=== PATIENT | female | born 1950 | race African-American/Black ===

== ENCOUNTER → 2016-11-05 | Outpatient (CLI) | payer OTHER ==
[2016-11-05 15:48] LABS: PH 5 (5-8); SQUAMOUS EPITHELIAL None Seen /hpf; URINE APPEARANCE Clear; URINE BACTERIA None Seen /hpf; URINE BILIRUBIN Negative (NEGATIVE); URINE BLOOD 2+ (NEGATIVE); URINE COLOR Straw; URINE GLUCOSE Negative (NEGATIVE); URINE KETONE Negative (NEGATIVE); URINE UROBILINOGEN Negative (NEGATIVE)
[2016-11-05 15:52] LABS: ADJUSTED CALCIUM 9.9 mg/dL (8.4-10.2); ALBUMIN 4.1 gm/dL (3.5-5.0); BILIRUBIN,TOTAL 0.5 mg/dL (0.0-1.0); CREATININE, serum 1.45 mg/dL (0.52-1.25); POTASSIUM 4.6 mmol/L (3.4-5.0); TOTAL PROTEIN 8.3 gm/dL (6.4-8.2)
== END ==
LOC: COL.LAB 14:50
PROVIDERS: Registered Nurse
DX: R82.90 Unspecified abnormal findings in urine (principal); R79.89 Other specified abnormal findings of blood chemistry

== ENCOUNTER 2016-12-14 09:33 | Outpatient (RCR) | payer OTHER | END 2017-01-22 09:25 | disposition home or self-care (01) | LOC: WSPT 09:33 | DX: M54.5 Low back pain (principal); M25.511 Pain in right shoulder; M25.561 Pain in right knee ==

== ENCOUNTER → 2016-12-14 | Outpatient (CLI) | payer OTHER | LOC: COL.RAD 10:49 | DX: M25.512 Pain in left shoulder (principal); R93.7 Abnormal findings on diagnostic imaging of other parts of musculoskeletal system; M25.511 Pain in right shoulder; M19.011 Primary osteoarthritis, right shoulder; M17.11 Unilateral primary osteoarthritis, right knee; M25.561 Pain in right knee; G89.29 Other chronic pain; M51.36 Other intervertebral disc degeneration, lumbar region ==

== ENCOUNTER → 2016-12-31 | Outpatient (CLI) | payer OTHER ==
[2016-12-31 16:59] LABS: ADJUSTED CALCIUM 9.5 mg/dL (8.4-10.2); BILIRUBIN,TOTAL 0.5 mg/dL (0.0-1.0); CALCIUM 9.5 mg/dL (8.4-10.2); CREATININE, serum 1.44 mg/dL (0.52-1.25); MAGNESIUM 1.7 mg/dL (1.6-2.3); PHOSPHOROUS 3.9 mg/dL (2.5-4.5); POTASSIUM 5.2 mmol/L (3.4-5.0); TOTAL PROTEIN 8.1 gm/dL (6.4-8.2)
[2016-12-31 17:05] LABS: PH 5 (5-8); SQUAMOUS EPITHELIAL 0-2 /hpf; URINE APPEARANCE Clear; URINE BACTERIA None Seen /hpf; URINE BILIRUBIN Negative (NEGATIVE); URINE BLOOD 1+ (NEGATIVE); URINE COLOR Yellow; URINE GLUCOSE Negative (NEGATIVE); URINE KETONE Negative (NEGATIVE); URINE UROBILINOGEN Negative (NEGATIVE)
[2016-12-31 17:17] LABS: URIC ACID 8.3 mg/dL (2.5-6.2)
== END ==
LOC: COL.LAB 15:09
PROVIDERS: Registered Nurse
DX: M11.89 Other specified crystal arthropathies, multiple sites (principal); R31.9 Hematuria, unspecified